=== PATIENT | female | born 1995 | race Two or more races ===

== ENCOUNTER 2020-07-30 12:27 | Emergency (ER) | payer MEDICAID, OTHER, SELFPAY ==
[2020-07-30 12:42] VITALS: BP 101/59; PULSE 62; RESP 18; TEMP 36.7; O2SAT 99; BMI 27.1
--- NOTE | 2020-07-30 13:09 | ED_ITS ---
HPI - General Adult General Chief complaint: General Medical <MEGHAN Gamez - Last Filed: 08/02/20 11:18> Stated complaint: R ARM INJ AT WORK <MEGHAN Gamez Last Filed: 08/02/20 11:18> Time Seen by Provider: 07/30/20 13:09 <MEGHAN Gamez - Last Filed: 08/02/20 11:18> History of Present Illness HPI narrative: Patient is here to get a work note to clear her return to work after a right arm injury last week when boxes fell and hit her in the right arm and in her mid back Now she has no more pain and is using the arm fully and simply needs a note to go back to work, there is no pain there is no restriction in movement, no numbness no weakness no tingling <MEGHAN Gamez Last Filed: 08/02/20 11:18> Related Data Allergies/adverse reactions: Allergies Allergy/AdvReac Type Severity Reaction Status Date / Time No Known Allergies Allergy Verified 07/30/20 12:47 [No Known Allergies*] <MEGHAN Gamez Last Filed: 08/02/20 11:18> Review of Systems Review of Systems: No neck pain no chest pain no numbness weakness or tingling no difficulty moving extremities no rashes no weakness no joint pains no changes to bowel or bladder <MEGHAN Gamez - Last Filed: 08/02/20 11:18> [facility] Past Medical History Source: nursing notes reviewed <MEGHAN Gamez Last Filed: 08/02/20 11:18> Medical History: Medical History (Updated 07/31/20 @ 00:01 by Magdalena Mcfadden) Patient denies significant medical history <MEGHAN Gamez - Last Filed: 08/02/20 11:18> Social History Social History: Social History Advance Directives: No Advance Directives Information Provided: No <MEGHAN Gamez Last Filed: 08/02/20 11:18> Physical Exam Vital Signs: Vital Signs: Last Vital Signs Temp 98.0 F 07/30/20 12:42 Pulse 62 07/30/20 12:42 Resp 18 07/30/20 12:42 BP 101/59 L 07/30/20 12:42 Pulse Ox 99 07/30/20 12:42 Body Mass Index 27.1 General appearance no acute distress comfortable relaxed cooperative Head is normocephalic atraumatic Neck supple nontender Chest wall nontender Extremities are full range of motion x4 without tenderness swelling or deformity The right arm has several healing bruises on the bicep and the forearm, but there is no tenderness over these bruises there is full complete range of motion motor strength is full with no pain when she flexes extends abducts her arm, neurovascular intact, skin is otherwise normal without any laceration or signs of infection, no swelling Other extremities are normal Back exam the back is nontender and has a full range of motion and no cassidy on the skin of any trauma Neuro motor is 5 over top of x4, gait and balance are normal sensation is intact and normal <MEGHAN Gamez - Last Filed: 08/02/20 11:18> Vital Signs: Last Vital Signs Temp 98.0 F 07/30/20 12:42 Pulse 62 07/30/20 12:42 Resp 18 07/30/20 12:42 BP 101/59 L 07/30/20 12:42 Pulse Ox 99 07/30/20 12:42 Body Mass Index 27.1 <Caesar Elder MD - Last Filed: 08/17/20 13:39> Course Course Course Narrative: Patient is fully recovered and ready to go back to work tomorrow <MEGHAN Gamez - Last Filed: 08/02/20 11:18> I have reviewed the chart <Caesar Elder MD - Last Filed: 08/17/20 13:39> Discharge Plan Discharge Clinical Impression: Contusion of arm, right <MEGHAN Gamez - Last Filed: 08/02/20 11:18> Patient Disposition: Home, Self-Care <MEGHAN Gamez - Last Filed: 08/02/20 11:18> Additional Instructions: You have recovered fully from the injury to the right arm and your able to return to work for all duties <MEGHAN Gamez - Last Filed: 08/02/20 11:18> Stand Alone Forms: Work/School Release <MEGHAN Gamez - Last Filed: 08/02/20 11:18> Interventions: ED Discharge Assessment Last Done: 07/30/20 13:45 <MEGHAN Gamez - Last Filed: 08/02/20 11:18> Discharge Date/Time: 07/30/20 13:46 <MEGHAN Gamez - Last Filed: 08/02/20 11:18>
--- NOTE | 2020-07-30 13:43 | PC.NURSE ---
PT ESSENTIALY CAME IN FOR MEDICAL CLEARANCE TO RETURN TO WORK. NO PAIN AT THIS TIME.
== END 2020-07-30 13:46 | disposition home or self-care (01) ==
LOC: HO.ED 13:40
PROVIDERS: Emergency Provider Emergency Medicine
DX: Z02.79 Encounter for issue of other medical certificate (principal); S40.021D Contusion of right upper arm, subsequent encounter; W20.8XXD Other cause of strike by thrown, projected or falling object, subsequent encounter
CPT/HCPCS: 99283